=== PATIENT | female | born 1945 | race Caucasian/White ===

== ENCOUNTER 2018-10-23 11:06 | Emergency (ER) | payer OTHER ==
[~2018-10-23] VITALS: Ht 157.5 cm; Wt 61.4 kg
[~2018-10-23 11:06] MED LIST: AMOXICILLIN PO
[2018-10-23 11:08] VITALS: BP 164/58
[2018-10-23] MEDS ORDERED: ALEN35TA32 PO (11:11)
== END 2018-10-23 12:04 | disposition home or self-care (01) ==
LOC: EMS 11:07
DX: B00.89 Other herpesviral infection (principal); M79.644 Pain in right finger(s); Z90.710 Acquired absence of both cervix and uterus